=== PATIENT | male | born 1965 | race American Indian/Alaskan Native ===

== ENCOUNTER 2018-03-25 06:01 | Emergency (ER) | payer MEDICAID ==
[2018-03-25 06:08] VITALS: TEMP 98.7; O2SAT 97; BMI 29.1
[2018-03-25] MEDS ORDERED: Albuterol-Ipratrop 3 mg / 0.5 (3 ml) UD IH STA (06:17)
--- NOTE | 2018-03-25 06:20 | ED PDOC ---
Arrival/HPI - General Chief Complaint: Flu-like Symptoms Time Seen by Provider: 03/25/18 06:06 Historian: Patient - History of Present Illness Narrative History of Present Illness (Text): 03/25/18 06:15 Luis Azevedo is a 53 year old male smoker, whose past medical history includes substance abuse and COPD, who presents to the Emergency department complaining of flu-like symptoms. Patient states he has been experiencing a productive cough with associated chest congestion, shortness of breath, nausea, vomiting, and body aches. Patient denies any fever, chills, diarrhea, urinary symptoms, back pain, neck pain, headache, dizziness, or any other complaints. Symptom Onset: Gradual Symptom Course: Unchanged Activities at Onset: Light Context: Home Past Medical History - Provider Review Nursing Documentation Reviewed: Yes - Pulmonary Hx Chronic Obstructive Pulmonary Disease (COPD): Yes - Neurological Hx Neurological Disorder: No - Psychiatric Hx Substance Use: Yes (meth) - Anesthesia Hx Anesthesia: No Family/Social History - Physician Review Nursing Documentation Reviewed: Yes Family/Social History: Unknown Family HX Smoking Status: Light Smoker < 10 Cigarettes Daily Hx Alcohol Use: No Hx Substance Use: Yes (meth) Allergies/Home Meds Allergies/Adverse Reactions: Allergies No Known Allergies Allergy (Verified 03/25/18 06:08) Review of Systems - Physician Review All systems were reviewed & negative as marked: Yes - Review of Systems Constitutional: Normal. absent: Fevers Eyes: Normal ENT: Other (+congestion) Respiratory: SOB, Cough, Sputum Cardiovascular: Normal Gastrointestinal: Nausea, Vomiting Genitourinary Male: Normal. absent: Dysuria, Frequency, Hematuria, Urinary Output Changes Musculoskeletal: Other (+body aches). absent: Back Pain, Neck Pain Skin: Normal. absent: Rash Neurological: Normal. absent: Headache, Dizziness Endocrine: Normal Hemo/Lymphatic: Normal Psychiatric: Normal Physical Exam Vital Signs Reviewed: Yes Vital Signs Temp Pulse Resp BP Pulse Ox 03/25/18 06:08 98.7 F 83 20 138/78 97 Temperature: Afebrile Blood Pressure: Normal Pulse: Regular Respiratory Rate: Normal Appearance: Positive for: Well-Appearing, Non-Toxic, Comfortable Pain Distress: None Mental Status: Positive for: Alert and Oriented X 3 - Systems Exam Head: Present: Atraumatic, Normocephalic Pupils: Present: PERRL Extroacular Muscles: Present: EOMI Conjunctiva: Present: Normal Mouth: Present: Moist Mucous Membranes Neck: Present: Normal Range of Motion Respiratory/Chest: Present: Clear to Auscultation, Good Air Exchange. No: Respiratory Distress, Accessory Muscle Use Cardiovascular: Present: Regular Rate and Rhythm, Normal S1, S2. No: Murmurs Abdomen: No: Tenderness, Distention, Peritoneal Signs Back: Present: Normal Inspection Upper Extremity: Present: Normal Inspection. No: Cyanosis, Edema Lower Extremity: Present: Normal Inspection. No: Edema Neurological: Present: GCS=15, CN II-XII Intact, Speech Normal Skin: Present: Warm, Dry, Normal Color. No: Rashes Psychiatric: Present: Alert, Oriented x 3, Normal Insight, Normal Concentration Medical Decision Making ED Course and Treatment: 03/25/18 06:15 Impression: 53 year old male complaining of productive cough, shortness of breath, chest congestion, nausea, vomiting, and body aches. Plan: -- EKG -- Chest X-ray -- Labs, cardiac enzymes, BNP, VBG, blood cultures -- Rapid influenza -- Duoneb -- Zofran -- Reassess and disposition Progress Notes: 03/25/18 06:28 Reviewed EKG, sinus bradycardia at [address]-segment elevations or depre ssions, no T-wave inversions, normal inte 03/25/18 06:29 Chest X-ray reviewed, shows a right lower lobe infiltrate. - RAD Interpretation Client Success Manager: ED Physician - EKG Interpretation Interpreted by ED Physician: Yes Type: 12 lead EKG - Transfer of Care Patient signed out to Dr:: dimitri labs , x ray re eval and dispo - Scribe Statement The provider has reviewed the documentation as recorded by the Kayla Diez Provider Scribe Attestation: All medical record entries made by the Scribe were at my direction and personally dictated by me. I have reviewed the chart and agree that the record accurately reflects my personal performance of the history, physical exam, medical decision making, and the department course for this patient. I have also personally directed, reviewed, and agree with the discharge instructions and disposition. Disposition/Present on Arrival - Present on Arrival Any Indicators Present on Arrival: No History of DVT/PE: No History of Uncontrolled Diabetes: No Urinary Catheter: No History of Decub. Ulcer: No History Surgical Site Infection Following: None - Disposition Have Diagnosis and Disposition been Completed?: Yes Diagnosis: CAP (community acquired pneumonia) Disposition: HOME/ ROUTINE Disposition Time: 07:00 Condition: GOOD Discharge Instructions (ExitCare): Pneumonia in Adults, Community-Acquired Pneumonia in Adults Additional Instructions: LUIS AZEVEDO, thank you for letting us take care of you today. Your provider was Raffi Moore and you were treated for shortness of breath. The emergency medical care you received today was directed at your acute symptoms. If you were prescribed any medication, please fill it and take as directed. It may take several days for your symptoms to resolve. Return to the Emergency Department if your symptoms worsen, do not improve, or if you have any other problems. Please contact your doctor or call one of the physicians/clinics you have been referred to that are listed on the Patient Visit Information form that is incl uded in your discharge packet. Bring any paperwork you were given at discharge with you along with any medications you are taking to your follow up visit. Our treatment cannot replace ongoing medical care by a primary care provider outside of the emergency department. Thank you for allowing the [facility] team to be part of your care today. If you had an X-Ray or CT scan: A Radiologist will review the ED reading if any change in treatment is needed we will contact you. If you had a blood, urine, or wound culture: It will take several days for the results, if any change in treatment is needed we will contact you. If you had an STI test: It will take 48 hours for the results. Please call after 1 week if you have not heard back. Prescriptions: RX: levoFLOXacin [Levaquin] 750 mg PO DAILY 5 Days #5 tab Referrals: Matteo Powers MD [Primary Care Provider] - Follow up with primary Forms: [employer] (Slovak), WORK NOTE
[2018-03-25 07:00] LABS: VENOUS BLOOD GAS BASE EXCESS 0.7 mmol/L (0.0-2.0); VENOUS BLOOD GAS PO2 33 mm/Hg (30-55); VENOUS BLOOD PH 7.32 (7.32-7.43)
[2018-03-25 07:09] LABS: ALB/GLOB RATIO 1.3 (1.1-1.8); ALBUMIN 4.3 g/dL (3.0-4.8); ALT/SGPT 38 U/L (7-56); AST/SGOT 33 U/L (17-59); BLOOD UREA NITROGEN 13 mg/dL (7-21); CALCIUM 9.3 mg/dL (8.4-10.5); GFR NON-AFRICAN AMERICAN > 60
[2018-03-25 07:18] LABS: BASO # 0.01 K/mm3 (0.0-2.0); BASO % 0.1 % (0.0-3.0); EOS # 0.1 (0.0-0.7); EOS % 0.6 % (1.5-5.0); GRAN # 8.83 (1.4-6.5); GRAN % 77.6 % (50.0-68.0); HEMOGLOBIN 12.1 g/dL (14.0-18.0); LYMPH # 1.3 (1.2-3.4); LYMPH % 11.7 % (22.0-35.0); MEAN CELL VOLUME 84.3 fl (80.0-105.0); MEAN CORPUSCULAR HGB CONC 33.2 g/dl (31.0-37.0); MEAN PLATELET VOLUME 10.7 fl (7.0-11.0); MONO # 1.1 (0.1-0.6); RBC 4.32 10^6/uL (3.5-6.1); RED CELL DISTRIBUTION WIDTH 12.7 % (11.5-14.5); WHITE BLOOD COUNT 11.4 10^3/ul (4.5-11.0)
[2018-03-25 07:20] LABS: B-TYPE NATRIURETIC PEPTIDE 101 pg/mL (0-450); TROPONIN I < 0.01 ng/mL
[2018-03-25 07:31] LABS: INR 0.99; PARTIAL THROMBOPLASTIN TIME 18.3 Seconds (25.1-36.5); PROTHROMBIN TIME 11.4 SECONDS (9.4-12.5)
[2018-03-25 07:48] VITALS: BP 123/71; PULSE 64; RESP 18
--- NOTE | 2018-03-25 08:05 | ED PDOC ---
Physical Exam Vital Signs Reviewed: Yes Vital Signs Temp Pulse Resp BP Pulse Ox 03/25/18 07:47 64 18 123/71 97 03/25/18 06:08 98.7 F 83 20 138/78 97 Temperature: Afebrile Blood Pressure: Normal Pulse: Regular Respiratory Rate: Normal Appearance: Positive for: Well-Appearing, Non-Toxic, Comfortable Pain Distress: None Mental Status: Positive for: Alert and Oriented X 3 - Systems Exam Head: Present: Atraumatic, Normocephalic Pupils: Present: PERRL Extroacular Muscles: Present: EOMI Conjunctiva: Present: Normal Mouth: Present: Moist Mucous Membranes Neck: Present: Normal Range of Motion Respiratory/Chest: Present: Clear to Auscultation, Good Air Exchange. No: Respiratory Distress, Accessory Muscle Use Cardiovascular: Present: Regular Rate and Rhythm, Normal S1, S2. No: Murmurs Abdomen: No: Tenderness, Distention, Peritoneal Signs Back: Present: Normal Inspection Upper Extremity: Present: Normal Inspection. No: Cyanosis, Edema Lower Extremity: Present: Normal Inspection. No: Edema Neurological: Present: GCS=15, CN II-XII Intact, Speech Normal Skin: Present: Warm, Dry, Normal Color. No: Rashes Psychiatric: Present: Alert, Oriented x 3, Normal Insight, Normal Concentration Medical Decision Making ED Course and Treatment: 03/25/18 07:00 Case endorsed to me by Dr. Vega for pending lab results, reassessment and final disposition. Patient is a 53 year old male, who presented to the Emergency department earlier today complaining of flu-like symptoms including productive cough, shortness of breath, chest congestion, nausea, vomiting, and body aches. Chest X-ray shows infiltrate in the right lower lobe for possible pneumonia. Labs pending. Patient is currently resting in bed in no acute distress. Patient presents no new medical complaints. 03/25/18 07:15 Labs reviewed, shows mildly elevated WBC count. No Sepsis criteria fulfilled. Negative curb 65. Patient is well appearing. Will likely discharge home if patient is able to ambulate without any issues. 03/25/18 08:10 ambulated well around ED with good o2 sat: in NAD with VSS. Given return indications and followup, Clear for d/c home. - Lab Interpretations Lab Results: 03/25/18 06:30 03/25/18 06:30 Lab Results 03/25/18 06:40: Influenza Typ A,B (EIA) Negative for flu a/b 03/25/18 06:30: Sodium 138, Chloride 104, Potassium 4.5, Carbon Dioxide 26, Anion Gap 12, BUN 13, Creatinine 1.0, Est GFR ( Amer) > 60, Est GFR (Non- Af Amer) > 60, Random Glucose 137 H, Calcium 9.3, Magnesium 2.0, Total Bilirubin 1.0, AST 33, ALT 38, Alkaline Phosphatase 64, Lactate Dehydrogenase 520, Total Creatine Kinase 226, Troponin I < 0.01, NT-Pro-B Natriuret Pep 101, Total Protein 7.8, Albumin 4.3, Globulin 3.4, Albumin/Globulin Ratio 1.3 03/25/18 06:30: pO2 33, VBG pH 7.32, VBG pCO2 54.0, VBG HCO3 27.8, VBG Total CO2 29.5 H, VBG O2 Sat (Calc) 66.2 H, VBG Base Excess 0.7, VBG Potassium 4.2, Sodium 136.0, Chloride 106.0, Glucose 138 H, Lactate 1.4, FiO2 21.0, Venous Blood Potassium 4.2 03/25/18 06:30: PT 11.4, INR 0.99, APTT 18.3 L 03/25/18 06:30: WBC 11.4 H, RBC 4.32, Hgb 12.1 L, Hct 36.4 L, MCV 84.3, MCH 28.0, MCHC 33.2, RDW 12.7, Plt Count 205, MPV 10.7, Gran % 77.6 H, Lymph % (Auto) 11.7 L, [place] % (Auto) 10.0 H, Eos % (Auto) 0.6 L, Baso % (Auto) 0.1, Gran # 8.83 H, Lymph # (Auto) 1.3, [place] # (Auto) 1.1 H, Eos # (Auto) 0.1, Baso # (Auto) 0.01 - RAD Interpretation Radiology Orders: 03/25/18 06:16 CHEST PORTABLE [RAD] Stat - Medication Orders Current Medication Orders: Discontinued Medications Albuterol/Ipratropium (Duoneb 3 Mg/0.5 Mg (3 Ml) Ud) 3 ml IH STAT STA Stop: 03/25/18 06:18 Last Admin: 03/25/18 06:41 Dose: 3 ml Ondansetron HCl (Zofran Inj) 4 mg IVP STAT STA Stop: 03/25/18 06:18 Last Admin: 03/25/18 06:35 Dose: 4 mg IVP Administration Document 03/25/18 06:35 RG (Rec: 03/25/18 06:41 RG [id number]) Charges for Administration # of IVP Administrations 1 - Scribe Statement The provider has reviewed the documentation as recorded by the Scribe Suyapa Menendez. All medical record entries made by the Scribe were at my direction and personally dictated by me. I have reviewed the chart and agree that the record accurately reflects my personal performance of the history, physical exam, medical decision making, and the department course for this patient. I have also personally directed, reviewed, and agree with the discharge instructions and disposition. Disposition/Present on Arrival - Present on Arrival Any Indicators Present on Arrival: No History of DVT/PE: No History of Uncontrolled Diabetes: No Urinary Catheter: No History of Decub. Ulcer: No History Surgical Site Infection Following: None - Disposition Have Diagnosis and Disposition been Completed?: Yes Diagnosis: CAP (community acquired pneumonia) Disposition: HOME/ ROUTINE Disposition Time: 08:09 Condition: GOOD Discharge Instructions (ExitCare): Pneumonia in Adults, Community-Acquired Pneumonia in Adults Additional Instructions: LUIS AZEVEDO, thank you for letting us take care of you today. Your provider was Raffi Moore and you were treated for shortness of breath. The emergency medical care you received today was directed at your acute symptoms. If you were prescribed any medication, please fill it and take as directed. It may take several days for your symptoms to resolve. Return to the Emergency Department if your symptoms worsen, do not improve, or if you have any other problems. Please contact your doctor or call one of the physicians/clinics you have been referred to that are listed on the Patient Visit Information form that is included in your discharge packet. Bring any paperwork you were given at discharge with you along with any medications you are taking to your follow up visit. Our treatment cannot replace ongoing medical care by a primary care provider outside of the emergency department. Thank you for allowing the [facility] team to be part of your care today. If you had an X-Ray or CT scan: A Radiologist will review the ED reading if any change in treatment is needed we will contact you. If you had a blood, urine, or wound culture: It will take several days for the results, if any change in treatment is needed we will contact you. If you had an STI test: It will take 48 hours for the results. Please call after 1 week if you have not heard back. Prescriptions: levoFLOXacin [Levaquin] 750 mg PO DAILY 5 Days #5 tab Referrals: Matteo Powers MD [Primary Care Provider] - Follow up with primary Forms: [employer] (Greenlandic)
--- NOTE | 2018-03-25 09:20 | RAD ---
Date of service: 03/25/2018 HISTORY: sob COMPARISON: No prior. FINDINGS: LUNGS: Minimal linear scar/atelectasis at right lung base. No acute infiltrate. PLEURA: No significant pleural effusion identified, no pneumothorax apparent. CARDIOVASCULAR: Normal. OSSEOUS STRUCTURES: No significant abnormalities. VISUALIZED UPPER ABDOMEN: Normal. OTHER FINDINGS: None. IMPRESSION: No active disease.
--- NOTE | 2018-03-25 14:48 | CARD ---
APPROVED REPORT Date of service: 03/25/2018 EKG Measurement Heart [id number] <Conclusion> Sinus bradycardia Otherwise normal ECG
== END 2018-03-25 08:30 | disposition home or self-care (01) ==
LOC: ED 06:01
DX: J18.9 Pneumonia, unspecified organism (principal); F17.210 Nicotine dependence, cigarettes, uncomplicated
CPT/HCPCS: 71045; 80053; 82550; 82803; 83615; 83735; 83880; 84484; 85025; 85610; 85730; 87040; 87804; 93005; 94640; 96374; 99284; J2405